=== PATIENT | male | born 1980 | race Caucasian/White ===

== ENCOUNTER 2022-10-07 21:41 | Emergency (ER) | payer OTHER, SELFPAY ==
--- NOTE | ~2022-10-07 | CT_ITS ---
EXAMINATION: CT ABDOMEN AND PELVIS WITH CONTRAST CLINICAL INFORMATION: Upper abdominal pain. Question etiology. COMPARISON: None TECHNIQUE: Multidetector volumetric images were obtained from the superior aspect of the liver through the pubic symphysis following administration 100 mL of Omnipaque 350 intravenous contrast. Sagittal and coronal reformatted images were obtained on the technologist's workstation. Oral contrast: No This CT examination was performed using dose optimization techniques as appropriate, variously including the following: *Automated exposure control *Adjustment of mA and/or kV according to patient size (this includes techniques or standardized protocols for targeted exams where dose is matched to indication/reason for exam; i.e. extremities or head) *Use of iterative reconstruction technique DLP: 825 mGy-cm FINDINGS: LUNG BASES: A 3 mm subpleural pulmonary nodule is evident in the right middle lobe, partially imaged. LIVER, GALLBLADDER, AND BILIARY TREE: The liver is normal in size, shape, and attenuation. No focal hepatic lesion or biliary ductal dilatation is present. There is a 2.2 cm gallstone at the neck of the gallbladder. Gallbladder is distended without appreciable wall thickening or surrounding fat stranding. PANCREAS: Unremarkable. SPLEEN: Unremarkable. ADRENAL GLANDS: Unremarkable. KIDNEYS AND URETERS: The kidneys are normal in size, shape, and attenuation. No hydronephrosis, hydroureter, or calculi seen. No perinephric stranding. BLADDER: Unremarkable. GASTROINTESTINAL TRACT: Stomach, small bowel, and colon are normal in caliber. No bowel wall thickening or surrounding inflammatory changes. Appendix is normal. No intraperitoneal free fluid or free air. ABDOMINAL WALL: No significant hernia is appreciated. LYMPH NODES: There is a enlarged portacaval lymph node measuring 1.5 cm in short axis. No additional adenopathy, though multiple subcentimeter nodes are present throughout the retroperitoneum and mid abdominal mesentery VASCULAR: Unremarkable. PELVIC VISCERA: The prostate and seminal vesicles are unremarkable. OSSEOUS STRUCTURES: Left L5 pars defect. Mild degenerative spondylosis in the lower thoracic and upper lumbar spine. No acute fracture or malalignment. CT/CT abdomen pelvis w IV con IMPRESSION: 1. Cholelithiasis with a 2.2 cm gallstone at the neck of the gallbladder. Gallbladder is distended without appreciable wall thickening or surrounding fat stranding. Consider correlation with ultrasound if there is concern for acute cholecystitis. 2. An enlarged 1.5 cm portacaval lymph node is of uncertain etiology. No additional adenopathy. 3. A 3 mm subpleural pulmonary nodule in the right middle lobe. According to the UPDATED 2017 Fleischner Society recommendations, the advised follow-up imaging for solid nodules < 6 mm is: LOW RISK PATIENT: No routine follow-up. HIGH RISK PATIENT: Optional CT at 12 months.
[2022-10-07 21:54] VITALS: BP 146/90; PULSE 98; RESP 20; TEMP 36.9; O2SAT 98; BMI 34.1
[2022-10-07 22:06] LABS: MANUAL DIFF FLAG NO
[2022-10-07 22:23] LABS: Alanine Aminotransferase 43 U/L (0-40); Albumin Level 4.2 g/dL (3.5-5.0); Alkaline Phosphatase 77 U/L (39-117); Anion Gap 14 (12-20); Aspartate Amino Transferase 22 U/L (5-37); Bilirubin Total 0.2 mg/dL (0.0-1.0); Blood Urea Nitrogen 17 mg/dL (9-16); Calcium 9.3 mg/dL (8.4-10.2); Carbon Dioxide 25 mmol/L (22-29); Chloride 106 mmol/L (96-108); Creatinine Clr Calc Pharmacy 165.8; Estimated Glomerular Filt Rate > 60; Glucose Random 128 mg/dL (60-115); Lipase 42 U/L (8-78); Potassium 4.1 mmol/L (3.3-5.1); Sodium 141 mmol/L (135-145)
[2022-10-07 22:29] LABS: Basophils Absolute Auto 0.1 X10*3/uL (0.0-0.2); Basophils Percent Auto 0.5 % (0-2); Eosinophils Absolute Auto 0.3 X10*3/uL (0.0-0.4); Eosinophils Percent Auto 2.7 % (0-4); Hematocrit 38.6 % (42.0-52.0); Hemoglobin 13.3 g/dl (14.0-18.0); Imm Gran Abs Auto 0.04 X10*3/uL (0.00-0.03); Imm Gran Pct Auto 0.3 % (0.0-0.4); Lymphocytes Percent Auto 32.1 % (20-40); Mean Corpuscular HGB Conc 34.5 g/dl (31.0-36.0); Mean Corpuscular Hemoglobin 29.2 pg (27.0-33.0); Mean Corpuscular Volume 84.6 fL (80.0-98.0); Mean Platelet Volume 9.4 fL (9.4-12.4); Monocytes Absolute Auto 0.9 X10*3/uL (0.1-1.2); Monocytes Percent Auto 7.6 % (2-11); Neutrophils Percent Auto 56.8 % (45-73); Platelet Count 344 X10*3/uL (160-400); Red Blood Count 4.56 X10*6/uL (4.60-5.80); Red Cell Distribution Width 13.2 % (11.0-16.0); White Blood Count 12.4 X10*3/uL (4.8-10.8)
[2022-10-07 23:15] VITALS: BP 119/63; PULSE 89; RESP 18; TEMP 36.6; O2SAT 98
[2022-10-07 23:30] LABS: Appearance Urine Clear; Color Urine Yellow; Glucose Urine UA Negative (Negative); Leukocyte Esterase Urine Negative (Negative); Nitrite Urine Negative (Negative); Urine Blood Negative (Negative); Urine Ketones Negative (Negative); Urine Protein Negative (Neg-Trace)
--- NOTE | 2022-10-07 23:39 | ED_ITS ---
HPI - Abdominal Pain General Chief Complaint: Abdominal Pain Stated Complaint: Abdominal Pain Time Seen by Provider: 10/07/22 22:49 Source: patient Mode of arrival: ambulatory Limitations: no limitations History of Present Illness HPI narrative: Patient no significant past medical history been having off and on upper abdominal pain for some time lasting only for few hours today came here for increased abdominal pain which started 3 days ago and still not going away get worse when he eats food feel bloated normal bowel movement no fever or chills no dysuria or hematuria no history of gallstones patient denies nausea or vomiting Related Data Previous Rx's Medication Instructions Recorded tramadol 50 mg tablet 50 mg PO Q6H PRN pain #20 tabs 10/08/22 Allergies Allergy/AdvReac Type Severity Reaction Status Date / Time No Known Allergies Allergy Verified 10/07/22 21:58 Review of Systems Review of Systems Yes all other systems are reviewed and are negative [facility] Social History Social History Advance Directives: No Advance Directives Information Provided: No Physical Exam ED Vital Signs: Vital Signs - 24 hr 10/07/22 21:54 10/07/22 23:15 10/07/22 23:56 Temperature 98.5 F 97.8 F Pulse Rate 98 89 Respiratory Rate 20 18 16 Blood Pressure 146/90 H 119/63 Pulse Oximetry 98 98 Oxygen Delivery Method Room Air Room Air BMI result Body Mass Index 34.1 Appearance: Alert. Oriented X3. No acute distress. Eyes: PERRLA, no pallor or icterus ENT: Pharynx normal. Oral Mucosa moist Neck: Normal inspection. Neck supple. CVS: Normal heart rate and rhythm. Pulses normal. Respiratory: No respiratory distress. Equal air entry bilateral, no wh eezing/rales/rhonchi Abdomen: Soft and tenderness right upper quadrant and epigastric area no rebound tenderness or guarding Bowel sounds are present, no mass palpable, no CVA tenderness Skin: Skin warm and dry. Normal skin color. Normal skin turgor. Extremities: No lower extremity edema. No calf tenderness Neuro: Oriented X 3. No motor deficit. Medications Administered Discontinued Medications Generic Name Dose Route Start Last Admin Trade Name Freq PRN Reason Stop Dose Admin Famotidine 20 mg 10/07/22 23:40 10/07/22 23:56 Famotidine/Pf 20 Mg/2 Ml Vial IVPUSH 10/07/22 23:41 20 mg ONCE ONE Administration Sodium Chloride 1,000 mls @ 999 mls/hr 10/07/22 23:40 10/07/22 23:56 Ns IV 10/08/22 00:40 999 mls/hr .Q1H1M ONE Administration Iohexol 100 ml 10/08/22 00:58 10/08/22 00:59 Iohexol 350 Mg/Ml 100 Ml Infus..Btl IV 10/08/22 00:59 100 ml ONCE ONE Administration Morphine Sulfate 4 mg 10/07/22 23:40 10/07/22 23:56 Morphine Sulfate 4 Mg/Ml Cartridge IVPUSH 10/07/22 23:41 4 mg ONCE ONE Administration Protocol Ondansetron HCl 4 mg 10/07/22 23:40 10/07/22 23:56 Ondansetron Hcl 4 Mg/2 Ml Vial IVPUSH 10/07/22 23:41 4 mg ONCE ONE Administration MDM - Abdominal Pain MDM Narrative Medical decision making narrative: Patient with 2.2 cm gallstone without any signs of cholecystitis no gallbladder wall edema WBC count normal Differential Diagnosis Differential diagnosis: Likely abdominal pain Lab Data Attestation: I reviewed the patient's lab results. Result diagrams: 10/07/22 22:02 10/07/22 22:02 Labs: Lab Results 10/07/22 10/07/22 10/07/22 Range/Units 22:02 22:02 23:24 WBC 12.4 H (4.8-10.8) X10*3/uL RBC 4.56 L (4.60-5.80) X10*6/uL Hgb 13.3 L (14.0-18.0) g/dl Hct 38.6 L (42.0-52.0) % MCV 84.6 (80.0-98.0) fL MCH 29.2 (27.0-33.0) pg MCHC 34.5 (31.0-36.0) g/dl RDW 13.2 (11.0-16.0) % Plt Count 344 (160-400) X10*3/uL MPV 9.4 (9.4-12.4) fL Immature Gran % (Auto) 0.3 (0.0-0.4) % Neut % (Auto) 56.8 (45-73) % Lymph % (Auto) 32.1 (20-40) % Stevens % (Auto) 7.6 (2-11) % Eos % (Auto) 2.7 (0-4) % Baso % (Auto) 0.5 (0-2) % Lymph # (Auto) 4.0 (1.2-4.9) X10*3/uL Stevens # (Auto) 0.9 (0.1-1.2) X10*3/uL Eos # (Auto) 0.3 (0.0-0.4) X10*3/uL Baso # (Auto) 0.1 (0.0-0.2) X10*3/uL Abs Immat Gran (auto) 0.04 H (0.00-0.03) X10*3/uL Absolute Neuts (auto) 7.0 (2.0-8.3) x10*3/uL Absolute Nucleated RBC 0.000 (0.0-0.012) X10*3/uL Nucleated RBC % (auto) 0.0 (0.0-0.2) /100WBC Sodium 141 (135-145) mmol/L Potassium 4.1 (3.3-5.1) mmol/L Chloride 106 (96-108) mmol/L Carbon Dioxide 25 (22-29) mmol/L Anion Gap 14 (12-20) BUN 17 H (9-16) mg/dL Creatinine 0.75 (0.5-1.4) mg/dL Estim Creat Clear Calc 165.8 Estimated GFR > 60 Random Glucose 128 H (60-115) mg/dL Calcium 9.3 (8.4-10.2) mg/dL Total Bilirubin 0.2 (0.0-1.0) mg/dL AST 22 (5-37) U/L ALT 43 H (0-40) U/L Alkaline Phosphatase 77 (39-117) U/L Total Protein 7.0 (6.5-8.0) g/dL Albumin 4.2 (3.5-5.0) g/dL Lipase 42 (8-78) U/L Urine Color Yellow Urine Appearance Clear Urine pH 7.0 (5.0-9.0) Ur Specific [place] 1.020 (1.005-1.025) Urine Protein Negative (Neg-Trace) mg/dL Urine Glucose (UA) Negative (Negative) mg/dL Urine Ketones Negative (Negative) mg/dL Urine Blood Negative (Negative) Urine Nitrite Negative (Negative) Ur Leukocyte Esterase Negative (Negative) Discharge Plan Discharge Clinical Impression: Cholelithiases Patient Disposition: Home, Self-Care Instructions: Gallstones (ED) Additional Instructions: Drink plenty of fluids ,liquid diet advanced slowly Avoid fried food See surgeon for surgical evaluation Prescriptions: New tramadol 50 mg tablet 50 mg PO Q6H PRN (Reason: pain) Qty: 20 0RF Referrals: Triston Mckeon MD [Physician] - 3 days Stand Alone Forms: Work/School Release
[2022-10-07 23:56] VITALS: RESP 16
[2022-10-07] MEDS: 0.9 % Sodium Chloride 1,000 ML 999 ML IV (23:56)
[2022-10-07] MEDS: ondansetron HCL 4 MG/2 ML VIAL IVPUSH (23:56)
[2022-10-07] MEDS: Famotidine/PF 20 MG/2 ML VIAL IVPUSH (23:56)
[2022-10-07] MEDS: Morphine Sulfate 4 MG/ML CARTRIDGE IVPUSH (23:56)
[2022-10-08] MEDS: iohexoL 350 MG/ML 100 ML INFUS..BTL IV (00:59)
[2022-10-08] MEDS: Ketorolac Tromethamine 30 MG/ML VIAL IVPUSH (01:59)
[2022-10-08 02:00] VITALS: BP 122/78; PULSE 77; RESP 16; TEMP 36.6; O2SAT 97
== END 2022-10-08 02:12 | disposition home or self-care (01) ==
PROVIDERS: Emergency Provider Internal Medicine
DX: K80.20 Calculus of gallbladder without cholecystitis without obstruction (principal)
CPT/HCPCS: 36415; 74177; 80053; 81003; 83690; 85025; 96374; 96375; 99284; J1885; J2270; J2405; Q9967

== ENCOUNTER 2022-10-27 08:14 | Outpatient (REF) | payer OTHER, SELFPAY ==
--- NOTE | ~2022-10-27 | MR_ITS ---
EXAMINATION: MR MRCP CLINICAL INFORMATION: COMPARISON: CT scan of the abdomen and pelvis dated 10/08/2022. TECHNIQUE: MR abdomen is performed without gadolinium contrast. MRCP was also performed with 3-D reconstructed images on a separate workstation. FINDINGS: LUNG BASES: The visualized lung bases are unremarkable. LIVER: Hepatic steatosis with focal fatty sparing adjacent to the gallbladder. Small T2 hyperintense focus are seen posteriorly in the right lobe measuring 0.9 cm (image 2, series 4) (as well as laterally in the right lobe measures 0.7 cm (image 7, series 4). GALLBLADDER/BILIARY TREE: Incompletely distended gallbladder containing a gallstone measuring up to 2.0 cm (image 9, series 4). No biliary ductal dilatation. No intraluminal abnormality. PANCREAS: Unremarkable. SPLEEN: Several small T2 hyperintense foci are seen. One of the largest is seen anterolaterally measuring 0.7 cm (image 7, series 4) ADRENAL GLANDS: Unremarkable. KIDNEYS AND URETERS: T2 hyperintense thin-walled foci are seen bilaterally measuring 2.0 cm in the interpolar right kidney (image 3, series 3) and small exophytic off of the medial margin of the upper pole of the left kidney on the same image measuring 1.0 cm. No hydroureteronephrosis. GASTROINTESTINAL TRACT: The stomach, visualized small bowel and visualized large bowel are unremarkable. ABDOMINAL WALL: No significant hernia is appreciated. LYMPH NODES: No lymphadenopathy. VASCULAR: Unremarkable. OSSEOUS STRUCTURES: Mild degenerative disc disease in the thoracic spine. Probable small vertebral body hemangioma along the anterior superior endplate of L1. No suspicious abnormality. MR/MR MRCP IMPRESSION: 1. Hepatic steatosis with focal fatty sparing adjacent to the gallbladder. Small T2 hyperintense foci in the liver and spleen are nonspecific, but demonstrate benign features and could represent cyst/hemangiomas. 2. Cholelithiasis without evidence for acute cholecystitis. No significant biliary tree abnormality. If the patient experiences acute symptoms, short-term follow-up with right upper quadrant ultrasound is recommended as clinically indicated. 3. Bilateral renal cysts demonstrate benign features not requiring follow-up at this time.
== END 2022-10-27 08:15 | disposition home or self-care (01) ==
LOC: HO.MRI 08:14
PROVIDERS: Visit Provider Surgery
DX: K80.20 Calculus of gallbladder without cholecystitis without obstruction (principal); R93.5 Abnormal findings on diagnostic imaging of other abdominal regions, including retroperitoneum
CPT/HCPCS: 74181

== ENCOUNTER 2022-12-03 06:55 | Day surgery (SDC) | payer OTHER, SELFPAY ==
[2022-11-30 13:29] VITALS: BMI 34.0
--- NOTE | 2022-12-02 09:07 | HO.ANESPROP2 ---
Documented by User: Juani Rojas NP 12/02/22 09:07 HPI - Anesthesia Eval Consult details Narrative: 42yo M for Cholecystectomy Laparoscopic.possible open,possible cholangiogram PMFSH Active Problems Active Problems: All Active Problems (Updated 11/30/22 @ 13:25 by Miriam Landon RN) Gallstones (Acute) Abnormal abdominal CT scan (Acute) Past Medical History Medical History (Updated 11/30/22 @ 13:25 by Miriam Landon RN) No pertinent past medical history Surgical History Surgical History (Updated 11/30/22 @ 13:29 by Miriam Landon RN) Surgical history unknown Social History Social History Patient Tobacco Use Status: Former Tobacco user Cigarette Packs Per Day: 1 Cigarettes Per Day: 20.0 Use of substances other than those prescribed or required for medical reasons: No Advance Directives: No Advance Directives Information Provided: Yes Meds Allergies Allergy/AdvReac Type Severity Reaction Status Date / Time No Known Allergies Allergy Verified 10/29/22 14:02 Exam Exam Date and Time: December 02, 2022 0907 Height,Weight and Vital Signs: Height 5 ft 11 in Weight 110.677 kg Pertinent Lab Results Pertinent Lab Results: Laboratory Tests 10/07/22 10/07/22 22:02 22:02 WBC 12.4 H Hgb 13.3 L Hct 38.6 L Plt Count 344 Sodium 141 Potassium 4.1 Chloride 106 Carbon Dioxide 25 BUN 17 H Creatinine 0.75 Assessment and Plan Assessment Anesthesia Assessment: Chart Reviewed Documented by User: Jean Arana MD 12/03/22 09:42 PMFSH Past Medical History Medical History (Updated 11/30/22 @ 13:25 by Miriam Landon RN) No pertinent past medical history Family History Family history of problems with anesthesia: No Surgical History Surgical History (Updated 11/30/22 @ 13:29 by Miriam Urgo, RN) Surgical history unknown History of Problems with Anesthesia: No Social History Social History Patient Tobacco Use Status: Former Tobacco user Cigarette Packs Per Day: 1 Cigarettes Per Day: 20.0 Use of substances other than those prescribed or required for medical reasons: No Advance Directives: No Advance Directives Information Provided: Yes Meds Allergies Allergy/AdvReac Type Severity Reaction Status Date / Time No Known Allergies Allergy Verified 10/29/22 14:02 Exam Airway Mallampati Class: I TM Dist: >3cm Neck ROM: Full Heart: rrr Lungs: cta Assessment and Plan Assessment Anesthesia Assessment: Anesthesia Plan Discussed and Smoking Cess. Discussed Final Anesthetic Review Family History of Problems with Anesthesia: No History of Problems with Anesthesia: No NPO: Yes ASA Class: II Final Preanesthetic Review: No Changes in Pt Med Stat, Meds/Allgs Chart Reviewed, Consent Obtained/Reviewed and Anes Risks/Benef Reviewed Patient Risk: Intermediate Procedure Risk: Intermediate Anesthetic Plan Anesthetic Plan: GA Disposition: Standard PACU
[2022-12-03] VITALS (11 sets, daily range): BP systolic 101–135; BP diastolic 57–72; PULSE 77–106; RESP 15–20; TEMP 36.7–36.9; O2SAT 95–100; BMI 30.7
[2022-12-03] MEDS: Acetaminophen 325 MG TABLET 650 MG PO (07:30)
[2022-12-03] MEDS: Lactated Ringers 1,000 ML 100 ML IVCONT (07:31)
[2022-12-03] MEDS: Albuterol Sulfate (0.083%) 2.5 MG/3 ML VIAL.NEB INHALE (07:57)
--- NOTE | 2022-12-03 08:48 | PC.NURSE ---
post updraft, lungs clear bilaterally
--- NOTE | 2022-12-03 09:01 | MHC.SHP ---
Pre-Procedural Eval Section A Date of Service: 12/03/22 The patient is an INPATIENT: No The History & Physical has been completed within 30 days and I have reviewed it.: No Section B Chief Complaint: Calculus of gallbladder without cholecystitis Details of Present Illness: Patient with biliary colic and cholelithiasis Relevant Family History (Specify if Yes): No Relevant Social History: Tobacco Use Present Medications: see Short Stay Collaborative assessment Medical History: No relevant PMH History of Previous Operations: No relevant previous surgery Allergies: Allergies Allergy/AdvReac Type Severity Reaction Status Date / Time No Known Allergies Allergy Verified 10/29/22 14:02 Review of Systems Sugical H&P ROS: Negative: Constitution, Cardiovascular, Respiratory, Neurological, Psychiatric, Hem-Onc, Allergic/Immunologic, Gastrointestinal, Genitourinary, Musculoskeletal, Integumentary, Endocrine and Eyes/Ears/Nose/Throat Exam Surgical H&P Exam: Normal: HEENT, Normal: Heart, Normal: Lungs, Normal: Extremities, Normal: Abdomen, Normal: Skin and Normal: Neurological Plan Diagnosis/Plan: Unchanged I have reviewed the history and physical and performed a pertinent physical examination on my patient. No changes have occurred unless specified. Time Spent With Patient Time: Total time managing care of this patient today ____ minutes.
--- NOTE | 2022-12-03 09:02 | W.PM.OPN ---
Operative Note Operative Note Date of Service: 12/03/22 Narrative: Preop diagnosis: [Biliary colic] Postop diagnosis: [Same and right upper quadrant adhesions, LOPEZ] Procedure: Laparoscopic cholecystectomy and laparoscopic lysis of adhesions for 20 minutes] Surgeon: Esteban Kennedy MD Assist: [] Anesthesia: [GET; ropivacaine 0.5%] Estimated blood loss: [10cc] Specimen: [Gallbladder with content] Intraoperative findings: [4-5 mm cystic duct and 2-3 mm cystic artery in the usual location; adhesions from the omentum to the liver and gallbladder were noted in the right upper quadrant and extensive requiring a 20 minute lysis of adhesions with a LigaSure] Indications: [The patient is a 42-year-old gentleman who presented previously with biliary colic and cholelithiasis. He was advised to quit smoking but was unable to and wanted to proceed with cholecystectomy given the severity of symptoms and emergency room visits. I explained the symptoms of biliary colic and recommended laparoscopic cholecystectomy. I reviewed the option of continued observation and 2nd opinion which was declined. I also reviewed the inherent risks to surgery which include, but are not limited to: Bleeding that could require another operation or blood transfusion, the need for open surgery, the unlikely but possible issue of bile leak that could require an ERCP, the risk of retained common duct stones that could require an ERCP, the risk of common bile duct injury which would require transfer to a larger institution for another operation. Patient seemed to understand her options, declined a medical translator or 2nd opinion and wants to proceed. The patient's increased risks for infectious and healing complications due to nicotine was also discussed at length and the patient stated he would be unable to quit smoking and given the risk of recurrent biliary colic or gallstone pancreatitis verses postoperative complications, patient wanted to proceed. Instructions regarding diet and activity reviewed and apparently understood. The patient is advised to avoid rich fatty foods postoperatively to avoid GI distress/diarrhea and advised to not lift more than 20 lb for medical reasons to minimize the risk of hernia postoperatively. I recommended that she discuss these restrictions with her employer and that she is not disabled during this time frame but can perform light duty. The patient's questions seemed to be satisfactorily answered.] Procedure: [The patient was identified in preoperative holding and again in the operating room and placed supine on the table. The patient voided bladder medical collections representative, sequential compression stockings were in place and antibiotics per protocol were given. The patient was induced in general endotracheal anesthesia administered with excellent effect. An appropriate time-out was performed. A footboard was utilized. The patient's abdomen was widely prepped and draped in the usual manner for surgery using chlorprep. Preemptive local was used at all trocar insertion sites. Again at the supraumbilical location and after infiltrating local, made a stab incision and placed a Veress needle without difficulty. An appropriate drop test was performed and a pneumoperitoneum of 15 mmHg was obtained using carbon dioxide. opening pressure was 6 mmHg. Next, the needle was withdrawn and a 5 mm/30 degree laparoscoped over Optiview trocar was used to access the abdomen without incident. Upon examining the abdomen, there was no evidence of injury from the Veress needle or trocar. Next, 5 mm trocars were placed in the epigastric, subcostal and right anterior axillary line just above the line of the umbilicus. Under direct laparoscopic vision, the 5 mm umbilical port was upsized to a 12 mm. The patient was then positioned in reverse Trendelenburg position and banked left. The gallbladder could not be identified secondary to adhesions from the omentum to the both the liver and the gallbladder. This required a lysis of adhesions for 20' that was performed to define the gallbladder and related anatomy. During this dissection, the 30 degree scope was used to examine circumferentially to be sure that no bowel was contained in the omentum. Next, dissection was taken to the neck of the gallbladder and cystic triangle. The gallbladder was clearly identified and grasped by its fundus. It was retracted cranially and anteriorly and dissection began in the cystic triangle. The cystic duct was identified at its junction on the gallbladder and dissection began laterally, then circumferentially dissected using the [place] dissector and hook. The cystic artery was then carefully identified and circumferentially dissected. Once dissection of both structures was complete and the critical view of safety demonstrated, the duct and artery were double clipped proximally and once distally and sharply divided. Electrocautery was used to remove the gallbladder from its fossa on the liver. The fundus of the gallbladder was intrahepatic requiring meticulous dissection to avoid entering the gallbladder. Liver bed was inspected for hemostasis and the clips were noted to be on the respective structures. The gallbladder was placed in an Endo-Catch bag and delivered through the umbilicus under direct laparoscopic vision. The abdomen was again inspected with the laparoscoped and a abdomen deflated to assess for hemostasis. The patient was returned to neutral position, the abdomen deflated and the fascia of the supraumbilical incision closed with interrupted Vicryl sutures. Skin was closed with 4-0 Monocryl subcuticular sutures. Mastisol and Steri-Strips were applied followed by Band-Aids. The patient tolerated the procedure well and was extubated recovered in stable condition. All sponge instrument counts were correct.
== END 2022-12-03 13:49 | disposition home or self-care (01) ==
PROVIDERS: Visit Provider Surgery
PROC: 0FT44ZZ Resection of Gallbladder, Percutaneous Endoscopic Approach (ICD-10-PCS; CPT 47562; principal; 2022-12-03 08:40)
DX: K80.10 Calculus of gallbladder with chronic cholecystitis without obstruction (principal); K82.8 Other specified diseases of gallbladder; K66.0 Peritoneal adhesions (postprocedural) (postinfection); K75.81 Nonalcoholic steatohepatitis (NASH); Z87.891 Personal history of nicotine dependence
CPT/HCPCS: 47562; 49329; 88304; J0690; J1100; J1885; J2405; J2795; J3010

== ENCOUNTER → 2022-12-11 10:23 | Outpatient (BNVA) | payer OTHER, SELFPAY | PROVIDERS: Visit Provider Surgery | DX: Z13.89 Encounter for screening for other disorder (principal) ==